=== PATIENT | male | born 1985 | race Two or more races ===

== ENCOUNTER 2017-09-24 11:54 | Emergency (ER) ==
[2017-09-24 11:58] VITALS: BP 145/80; TEMP 98.4; BMI 32.3
[2017-09-24] MEDS ORDERED: MORPHINE 2 MG/ML SYRINGE IM STA (12:02)
[2017-09-24] MEDS ORDERED: PHENERGAN 25 MG/ML VIAL IM STA (12:02)
[2017-09-24] MEDS ORDERED: NORCO 10-325 PO STA (12:04)
[2017-09-24] MEDS ORDERED: BENADRYL PO STA (12:48)
--- NOTE | 2017-09-24 12:54 | CT ---
EXAM: CT lumbar spine without contrast HISTORY: Coccygeal pain. Fall. TECHNIQUE: Multi-slice transaxial helical with coronal and sagittal reformatted views. COMPARISON: Pelvic CT from same day. FINDINGS: The visualized vertebral body heights and intervertebral disc spaces appear preserved. No evidence o f listhesis is seen. Bilateral five pars defects are present and appear chronic. No evidence of acut e displaced lumbar fracture is seen. Minimal multilevel lumbar disc bulges are seen which do not sign ificantly narrow the central canal. No significant neural foraminal narrowing is seen. Visualized r etroperitoneum appears unremarkable. IMPRESSION: 1. No acute osseous abnormality of the lumbar spine. 2. Bilateral L5 pars defects without listhesis.
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
== END 2017-09-24 13:24 | disposition home or self-care (01) ==
LOC: ED 11:54
DX: S39.92XA Unspecified injury of lower back, initial encounter (principal); W19.XXXA Unspecified fall, initial encounter
CPT/HCPCS: 99283

== ENCOUNTER 2017-11-04 18:45 | Emergency (ER) ==
[2017-11-04 18:55] VITALS: BP 148/82; TEMP 98.2; BMI 31.1
[2017-11-04] MEDS ORDERED: MOTRIN PO STA (20:03)
[2017-11-04] MEDS ORDERED: AMOXIL PO STA (20:03)
--- NOTE | 2017-11-04 20:07 | ED.PDOC ---
General ED Provider: Dr. MAHNAZ RODGERS Chief Complaint: Tooth Problem Stated Complaint: Patient states he has been having severe right upper molar tooth pain for the past few days. Has been taking Excedrine but pain is worse. Time Seen by Physician: 20:04 Mode of Arrival: Walk-In Information Source: Patient Primary Care Provider: GERONIMO BECERRIL Nursing and Triage Documentation Reviewed and Agree: Yes Does patient meet sepsis criteria?: No System Inflammatory Response Syndrome: Not Applicable Sepsis Protocol: For patient's 13 years and over: Temp is 96.8 and below OR 101 and greater Pulse >90 BPM Resp >20/minute Acutely Altered Mental Status Are patient's symptoms suggestive of a new infection, such as: -Pneumonia -Skin, Soft Tissue -Endocarditis -UTI -Bone, Joint Infection -Implantable Device -Acute Abdominal Infection -Wound Infection -Meningitis -Blood Stream Catheter Infection -Unknown EENT Complaint Exam - Dental/Oral Complaint/Exam Mechanism of Injury: No known trauma Onset/Duration: 2 days Symptoms Are: Still present Timing: Constant Initial Severity: Moderate Current Severity: Severe Location: left upper molar Character: Reports: Aching, Throbbing Aggravating: Reports: Heat, Cold, Chewing, Exertion Alleviating: Reports: None Associated Signs and Symptoms: Reports: Swelling, Discharge, Foul odor, Foul taste in mouth Related History: Reports: Similar episode Cardiac Risk Factors: Reports: None Dental/Oral Surgical History: Reports: None Tooth Findings: Present: Gross decay, Gross caries, Abcess Facial Swelling Present: No Bleeding Present: No Oropharynx Findings: Absent: Clots, Active bleeding Septal Hematoma: No Foreign Body Present: No Dysphagia Present: No Drooling Present: No Asymmetrical Tonsillar Swelling Present: No Uvula Midline: No Cee-tonsillar Fluctuence: No Trismus Present: No Palatal Petechiae Present: No Scarlatinaform Rash Present: No Teeth Picture: 1 - gross decay and Abscess Differential Diagnoses: Dental Abcess, Dental Caries Review of Systems - Review Of Systems Constitutional: Reports: No symptoms Eyes: Reports: No symptoms Ears, Nose, Mouth, Throat: Reports: Mouth pain, Mouth swelling Respiratory: Reports: No symptoms Cardiac: Reports: No symptoms GI: Reports: No symptoms : Reports: No symptoms Musculoskeletal: Reports: No symptoms Skin: Reports: No symptoms Neurological: Reports: No symptoms Endocrine: Reports: No symptoms Hematologic/Lymphatic: Reports: No symptoms All Other Systems: Reviewed and Negative Past Medical History - Past Medical History Previously Healthy: Yes Endocrine: Reports: Unknown Cardiovascular: Reports: Unknown Respiratory: Reports: Unknown Hematological: Reports: Unknown Gastrointestinal: Reports: Unknown Genitourinary: Reports: Unknown Neuro/Psych: Reports: Unknown Musculoskeletal: Reports: Unknown Cancer: Reports: Unknown - Surgical History General Surgical History: Reports: Unknown - Family History Family History: Reports: Unknown - Social History Smoking Status: Current every day smoker, Heavy tobacco smoker Hx Substance Use: No Alcohol Screening: None - Immunizations Tetanus Shot up to Date: No (unknown) Physical Exam - Physical Exam Appearance: Ill-appearing Ill-appearing: Mild Pain Distress: Severe Eyes: PURA, EOMI, Conjunctiva clear ENT: Ears normal, Nose normal, Oropharynx normal Neck: Supple Respiratory: Airway patent, Breath sounds clear, Breath sounds equal, Respirations nonlabored Cardiovascular: RRR, Pulses normal, No rub, No murmur Musculoskeletal: Normal strength, ROM intact Skin: Warm, Dry Neurological: Alert, Oriented Psychiatric: Affect appropriate, Mood appropriate Critical Care Note - Critical Care Note Total Time (mins): 0 Course - Course Orders, Labs, Meds: Orders Category Date Time Status Amoxicillin [Amoxil] MEDS 11/04/17 20:03 Stat 500 mg PO ONCE STA Ibuprofen [Motrin] MEDS 11/04/17 20:03 Stat 800 mg PO ONCE STA Vital Signs: Temp Pulse Resp BP Pulse Ox 11/04/17 18:47 98.2 F 88 18 148/82 H 96 Departure - Departure Time of Disposition: 20:18 Disposition: HOME SELF-CARE Discharge Problem: Toothache, Dental abscess Instructions: Dental Abscess (ED) Condition: Fair Pt referred to PMD for follow-up: Yes IPMP verified?: No Prescriptions: Amoxicillin [Amoxil] 500 mg PO TID #30 capsule Oxycodone-Acetaminophen 5-325 [Percocet 5-325] 1 tab PO Q6H #20 tablet Allergies/Adverse Reactions: Allergies aspirin [From [place]atelynn-[place] Plus Cold/Cough] Adverse Reaction (Verified 09/24/17 11:58) chlorpheniramine [From [place] Plus Cold/Cough] Adverse Reaction (Verified 09/24/17 11:58) dextromethorphan [From [place] Plus Cold/Cough] Adverse Reaction (Verified 09/24/17 11:58) hydrocodone Adverse Reaction (Verified 11/04/17 18:53) Rash phenylpropanolamine [From [place] Plus Cold/Cough] Adverse Reaction ( Verified 09/24/17 11:58) Home Medications: Ambulatory Orders Glipizide [Glipizide ER] 5 mg PO DAILY 09/24/17 Lisinopril [Zestril] 10 mg PO DAILY 09/24/17 Metformin HCl [Glucophage] 1,000 mg PO BID 09/24/17 Amoxicillin [Amoxil] 500 mg PO TID #30 capsule 11/04/17 Oxycodone-Acetaminophen 5-325 [Percocet 5-325] 1 tab PO Q6H #20 tablet 11/04/17
== END 2017-11-04 20:24 | disposition home or self-care (01) ==
LOC: ED 18:45
DX: K04.7 Periapical abscess without sinus (principal); K08.89 Other specified disorders of teeth and supporting structures; K02.7 Dental root caries; F17.210 Nicotine dependence, cigarettes, uncomplicated
CPT/HCPCS: 99282

== ENCOUNTER 2017-11-08 23:49 | Emergency (ER) ==
[2017-11-08 23:59] VITALS: BP 154/91; TEMP 98.2; BMI 31.4
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
[2017-11-09] MEDS ORDERED: TYLENOL PO STA (00:55)
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
== END 2017-11-09 01:06 | disposition home or self-care (01) ==
LOC: ED 23:49
DX: S09.90XA Unspecified injury of head, initial encounter (principal); Y04.2XXA Assault by strike against or bumped into by another person, initial encounter; F17.210 Nicotine dependence, cigarettes, uncomplicated
CPT/HCPCS: 99283

== ENCOUNTER 2018-11-24 06:43 | Emergency (ER) ==
[2018-11-24 06:56] VITALS: BP 117/82; BMI 31.8
[2018-11-24] MEDS ORDERED: ZOFRAN 4 MG/2 ML IVP STA (07:07)
[2018-11-24] MEDS ORDERED: LACTATED RINGERS 1,000 ML IV STA (07:07)
[2018-11-24] MEDS ORDERED: TYLENOL PO STA (07:12)
--- NOTE | 2018-11-24 07:13 | ED.PDOC ---
General ED Provider: Dr. 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 Time Seen by Physician: 07:12 Mode of Arrival: Walk-In Information Source: Patient Primary Care Provider: GERONIMO BECERRIL Nursing and Triage Documentation Reviewed and Agree: Yes Does patient meet sepsis criteria?: No System Inflammatory Response Syndrome: Not Applicable Sepsis Protocol: For patient's 13 years and over: Temp is 96.8 and below OR 101 and greater Pulse >90 BPM Resp >20/minute Acutely Altered Mental Status Are patient's symptoms suggestive of a new infection, such as: -Pneumonia -Skin, Soft Tissue -Endocarditis -UTI -Bone, Joint Infection -Implantable Device -Acute Abdominal Infection -Wound Infection -Meningitis -Blood Stream Catheter Infection -Unknown Review of Systems - Review Of Systems Constitutional: Reports: Chills, Fever Eyes: Reports: No symptoms Respiratory: Reports: Wheezing Cardiac: Reports: Chest pain (mild / ) GI: Reports: Nausea : Reports: No symptoms Musculoskeletal: Reports: No symptoms Skin: Reports: No symptoms Neurological: Reports: Headache Endocrine: Reports: No symptoms Hematologic/Lymphatic: Reports: No symptoms All Other Systems: Reviewed and Negative Past Medical History - Past Medical History Previously Healthy: Yes Endocrine: Reports: Dyslipidemia Cardiovascular: Reports: Hypertension Respiratory: Reports: None Hematological: Reports: None Gastrointestinal: Reports: None Genitourinary: Reports: None Neuro/Psych: Reports: None Musculoskeletal: Reports: None Cancer: Reports: None - Surgical History General Surgical History: Reports: Tonsillectomy - Family History Family History: Reports: Diabetes - Social History Smoking Status: Current some day smoker Hx Substance Use: No Alcohol Screening: None - Immunizations Tetanus Shot up to Date: Yes Physical Exam - Physical Exam Appearance: Ill-appearing Pain Distress: Mild Eyes: PURA, EOMI, Conjunctiva clear Neck: Supple Respiratory: Airway patent, Breath sounds clear, Breath sounds equal, Respirations nonlabored Cardiovascular: RRR, Pulses normal, No rub, No murmur GI/: Soft, Nontender, No masses Musculoskeletal: Normal strength, ROM intact, No edema, No calf tenderness Skin: Warm, Dry Neurological: Motor intact, Alert, Oriented Psychiatric: Affect appropriate, Mood appropriate Interpretation - Radiology Interpretation Radiology Interpretation By: Radiologist Radiology Results: Negative Exam Interpreted: Portable CXR - EKG Interpretation Time of EKG #1: 07:06 Rate: Normal Rhythm: Sinus Ectopy: None [place]: NL ST Segment: Normal Interpretation: Normal EKG Re-Evaluation - Re-Evaluation Time of Re-Evaluation: 08:39 Status: Improved (headache is less ) - Re-Evaluation Time of Re-Evaluation: 09:58 Status: Improved Critical Care Note - Critical Care Note Total Time (mins): 30 Comments: Has had a prior Negative CT of head one year ago. Course - Course Hematology/Chemistry: 11/24/18 07:10 11/24/18 07:10 Orders, Labs, Meds: Lab Review 11/24/18 11/24/18 11/24/18 07:00 07:10 07:10 WBC 6.31 RBC 4.79 Hgb 14.5 Hct 43.3 MCV 90.4 MCH 30.3 MCHC 33.5 RDW Coeff of Chantel 13.3 Plt Count 134 L Immature Gran % (Auto) 0.3 Neut % (Auto) 68.2 Lymph % (Auto) 17.6 [place] % (Auto) 12.7 H Eos % (Auto) 1.0 Baso % (Auto) 0.2 Immature Gran # (Auto) 0.0 Neut # (Auto) 4.3 Lymph # (Auto) 1.1 [facility] # (Auto) 0.8 Eos # (Auto) 0.1 Baso # (Auto) 0.0 Sodium 136.7 Potassium 4.36 Chloride 100.7 Carbon Dioxide 24.7 Anion Gap 15.66 BUN 14.7 Creatinine 1.09 Estimated GFR (MDRD) 77.00 BUN/Creatinine Ratio 13.48 Glucose 208.1 H Calcium 8.82 Total Bilirubin 0.53 AST 133.8 H ALT 193.5 H Alkaline Phosphatase 124.8 Total Creatine Kinase 430.4 H CK-MB (CK-2) 1.140 CK-MB (CK-2) % 0.2600 Troponin I < 0.012 Total Protein 7.43 Albumin 4.40 Globulin 3.03 Albumin/Globulin Ratio 1.45 Urine Color Yellow Urine Clarity Clear Urine pH 5.5 Ur Specific [place] 1.025 Urine Protein Negative Urine Glucose (UA) 2+ Urine Ketones Negative Urine Blood Negative Urine Nitrite Negative Urine Bilirubin Negative Urine Urobilinogen 0.2 Ur Leukocyte Esterase Negative Orders Category Date Time Status EKG-(ED ONLY) Stat CARDIO 11/24/18 07:07 Completed ED IV/MEDIPORT/POWERPORT .ONCE EMERGENCY 11/24/18 07:07 Active CBC W/ AUTO DIFF Stat LAB 11/24/18 07:10 Completed COMPREHENSIVE METABOLIC PANEL Stat LAB 11/24/18 07:10 Completed CREATINE KINASE Stat LAB 11/24/18 07:10 Completed MOLECULAR GROUP A STREP Stat LAB 11/24/18 07:10 Completed TROPONIN I Stat LAB 11/24/18 07:10 Completed URINALYSIS C & S IF INDICATED Stat LAB 11/24/18 07:00 Completed 0.9 % Sodium Chloride [Saline Flush] MEDS 11/24/18 07:07 Active 1 syr IVF PRN PRN Acetaminophen [Tylenol] MEDS 11/24/18 07:12 Discontinued 1,000 mg PO ONCE STA Ondansetron HCl/Pf [Zofran 4 mg/2 ml] MEDS 11/24/18 07:07 Discontinued 4 mg IVP ONCE STA Ringers Lactated Solution [Lactated Ringers] 1,000 ml MEDS 11/24/18 07:07 Discontinued IV BOLUS Sodium Chloride 0.9% [Sodium Chloride] 1,000 ml MEDS 11/24/18 08:36 Discontinued IV BOLUS CHEST, 1V AP ONLY Stat RADS 11/24/18 07:07 Completed Medications Generic Name Dose Route Start Last Admin Trade Name Freq PRN Reason Stop Dose Admin Sodium Chloride 1 syr 11/24/18 07:07 11/24/18 07:19 Saline Flush IVF 1 syr PRN PRN Administration To flush IV Discontinued Medications Generic Name Dose Route Start Last Admin Trade Name Freq PRN Reason Stop Dose Admin Acetaminophen 1,000 mg 11/24/18 07:12 11/24/18 07:20 Tylenol PO 11/24/18 07:13 1,000 mg ONCE STA Administration Lactated Ringer's 1,000 mls @ 1,000 mls/hr 11/24/18 07:07 11/24/18 07:20 Lactated Ringers IV 11/24/18 08:06 1,000 mls/hr BOLUS STA Administration Sodium Chloride 1,000 mls @ 1,000 mls/hr 11/24/18 08:36 11/24/18 08:42 Sodium Chloride IV 11/24/18 09:35 1,000 mls/hr BOLUS STA Administration Ondansetron HCl 4 mg 11/24/18 07:07 11/24/18 07:22 Zofran 4 Mg/2 Ml IVP 11/24/18 07:08 4 mg ONCE STA Administration Vital Signs: Temp Pulse Resp BP Pulse Ox 11/24/18 08:44 99.6 F 11/24/18 06:44 101.2 F H 83 16 117/82 94 L [place] Risk Score Age >/= 65: No >/= 3 CAD Risk Factors: No Known CAD (Stenosis >/= 50%): No ASA Use in Past 7 Days: No Severe Angina (>/= 2 episodes in 24 hours): No EKG ST Changes >/= 0.5mm: No [place] Total Score: 0 [place]ICK Risk Score: Risk Score Odds of by 30D 0 0.1 (0.1-0.2) 1 0.3 (0.2-0.3) 2 0.4 (0.3-0.5) 3 0.7 (0.6-0.9) 4 1.2 (1.0-1.5) 5 2.2 (1.9-2.6) 6 3.0 (2.5-3.6) 7 4.8 (3.8-6.1) Departure - Departure Time of Disposition: 09:58 Disposition: HOME SELF-CARE Discharge Problem: Heat exhaustion due to water depletion Qualifiers: Encounter type: initial encounter Qualified Code(s): T67.3XXA - Heat exhaustion , anhydrotic, initial encounter Instructions: Heat Exhaustion (ED) Condition: Stable Pt referred to PMD for follow-up: Yes IPMP verified?: No Additional Instructions: Push fluids Take Tylenol as needed for Headache Rest and stay cool. Allergies/Adverse Reactions: Allergies aspirin [From [facility] Plus Cold/Cough] Adverse Reaction (Verified 11/09/17 00:01) chlorpheniramine [From [facility] [facility] Cold/Cough] Adverse Reaction (Verified 11/09/17 00:01) dextromethorphan [From [facility] [facility] Cold/Cough] Adverse Reaction (Verified 11/09/17 00:01) hydrocodone Adverse Reaction (Verified 11/09/17 00:01) Rash phenylpropanolamine [From [facility] [facility] Cold/Cough] Adverse Reaction ( Verified 11/09/17 00:01) Home Medications: Ambulatory Orders Lisinopril [Zestril] 5 mg PO DAILY 09/24/17
--- NOTE | 2018-11-24 07:26 | DI ---
EXAM: One-view chest HISTORY: Chest pain TECHNIQUE: Single frontal view the chest was obtained. FINDINGS: The heart is normal size. Lungs are clear. The pulmonary vasculature appears normal. Th e costophrenic angles are sharp. IMPRESSION: No active cardiopulmonary disease.
[2018-11-24] MEDS ORDERED: SODIUM CHLORIDE 1,000 ML IV STA (08:36)
[2018-11-24 08:44] VITALS: TEMP 99.6
== END 2018-11-24 10:02 | disposition home or self-care (01) ==
LOC: ED 06:43
DX: T67.3XXA Heat exhaustion, anhydrotic, initial encounter (principal); R51 Headache; R07.9 Chest pain, unspecified; R06.2 Wheezing; R50.9 Fever, unspecified; I10 Essential (primary) hypertension; E78.5 Hyperlipidemia, unspecified; F17.210 Nicotine dependence, cigarettes, uncomplicated
CPT/HCPCS: 36415; 80053; 81001; 82550; 82553; 84484; 85025; 87651; 93005; 93010; 96361; 96374; 99284